=== PATIENT | female | born 1990 | race Caucasian/White ===

== ENCOUNTER 2020-08-13 07:20 | Inpatient (IN) | payer OTHER ==
[2020-08-13] VITALS (22 sets, daily range): BP systolic 90–127; BP diastolic 54–83
[~2020-08-13] VITALS: Ht 175.3 cm; Wt 96.7 kg
[2020-08-13] MEDS ORDERED: BENA25CA4 PO (07:34)
[2020-08-13] MEDS ORDERED: PRENTAB9 PO (07:34)
[2020-08-13] MEDS ORDERED: UNIS25TA3 PO (07:34)
[2020-08-13] MEDS ORDERED: GNP250TA9 PO (07:34)
[2020-08-13] MEDS ORDERED: ACET-861 PO (07:34)
--- NOTE | 2020-08-13 09:15 | HPEPDOC ---
Obstetrical History & Physical General Date of Admission Aug 13, 2020 at 07:20 History of Present Illness 29yo at 39+1 by LMP c/w 6wk US presents for IOL for CHTN not on meds. Denied n/v/d, cp, sob, donahue, visual changes, abd pain, f/c, vaginal bleeding, dc, urinary sx, decreased fm, contractions, LOF. 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 Past Medical History Medical History obesity, thoracic outlet syndrome, migraines with aura, GERD, anxiety, depression, CHTN, CF carrier Surgical History: Other (LSC appendectomy, 1st rib resection) Family History Significant Family History: Other (hemachromatosis) Social History Marital Status: Family situation: Spouse/partner home * Smoker: non-smoker Alcohol: Denies Drugs: denies Imunizations Tdap status: current Influenza Status: current Allergies Coded Allergies: No Known Allergies (Unverified , 08/13/20) Medications Scheduled Doxylamine Succinate (Unisom Sleep Aid) 25 Mg Tablet, 1 TAB PO QPM Magnesium Oxide (Magnesium) 250 Mg Tablet, 1 TAB PO DAILY No.137/Iron/Folic Acd ( Vitamin Tablet) 1 Each Tablet, 1 TAB PO DAILY Scheduled PRN Acetaminophen (Acetaminophen) 500 Mg Tablet, 2 TAB PO PRN PRN for PAIN Diphenhydramine HCl (Benadryl) 25 Mg Capsule, 1 CAP PO PRN PRN for INSOMNIA Physical Examination Physical Examination GENERAL: Alert and oriented times three. BREAST: . ABDOMEN: Gravid and non-tender to touch. FETUS: Is vertex (VTX) by U/S, fetus is vertex (VTX) by Kel. HEART RATE: Regular rate and rhythm. LUNGS: Clear to auscultation (CTA). EXTREMITIES: No edema. No clonus. Deep tendon reflexes (DTRs) + . Vital Signs/I&O Vital Signs Date Time Temp Pulse Resp B/P (MAP) Pulse Ox O2 Delivery O2 Flow Rate FiO2 08/13/20 08:24 98.5 107 18 125/70 (88) Laboratory Data Urine Culture: Contaminated Pertinent Laboratoy Data HIV: Negative Hepatitis B: Negative Rapid Plasma Reagin: Nonreactive Rubella: Immune Varicella: Immune Group B Streptococcus: Negative Quad Screen Test: Negative (cfDNA) Cystic Fibrosis: Positive (carrier per patient) Glucose Tolerance Test: 147 Anatomy Ultrasound Placenta Location: Posterior Normal Anatomy: Yes Placenta Previa: No Estimated Weight (grams): 3400 Steroid Therapy Steroid Therapy: No Vaginal Examination Dilation: None Station: -3 Cervical Consistency: Medium Cervical Position: Posterior Presentation: Cephalic presentation (by exam) Assessment Heart Rate (FHR): 130 Variability: Moderate Accelerations: Positive Decelerations: None Tocometer Contractions: No Multi-drug resistant Organism: MRSA Assessment/Plan Assessment 29yo at 39+1 by LMP c/w 6wk US presents for IOL for CHTN not on meds. Normal VS. No si/sx of pre-e. CAT I tracing, reactive. Cephalic. APC 1. CHTN no meds 2. obesity, pre- BMI 30, 11# gain 3. low lying placenta, resolved 4. elecated 1h normal 3h GTT 5. CF carrier partner negative per patient 6. anxiety and depression not on meds, consult placed to 7. ERWIN at 35wk records in chart, missing some labs ordered on admit 8. due for pap Plan Admit and orient. Electrician Master and consent. Diet: clears Group B Streptococcus (GBS) [negative]. Labs and intravenous (IV) per unit protocol. Counseled on Pitocin and induction of labor (IOL). Will start on cytotec as CT/H and reassess in 4-6h or sooner if clinically indicated Anticipate [normal spontaneous delivery ()]. C-S as appropriate. Missing labs ordered on admit (G/C, T+S, HIV) along with baseline CHTNpre-e labs NEGAR WILSON DO Aug 13, 2020 09:15
[2020-08-13 09:19] LABS: ALT/SGPT 17 U/L (12-78); BILIRUBIN,TOTAL 0.4 MG/DL (0.2-1.0); CREATININE FOR GFR 0.66 MG/DL (0.55-1.30); GLOMERULAR FILTRATION RATE > 60.0 (>60); LDH LACTATE DEHYDROGENASE 128 U/L (84-246); URIC ACID 4.3 MG/DL (2.6-6.0)
[2020-08-13 09:20] LABS: HEMATOCRIT 34.4 % (36.0-47.0); HEMOGLOBIN 11.3 g/dl (12.0-15.5); MEAN CORPUSCULAR HEMOGLOBIN 27.6 pg (27.0-33.0); MEAN CORPUSCULAR HGB CONC 32.8 g/dl (32.0-36.5); MEAN CORPUSCULAR VOLUME 84.1 fl (80.0-96.0); PLATELET COUNT, AUTOMATED 259 10^3/uL (150-450); RED BLOOD COUNT 4.09 10^6/uL (4.00-5.40); WHITE BLOOD COUNT 10.3 10^3/uL (4.0-10.0)
[2020-08-13] MEDS ORDERED: miSOPROStol 25 MCG 1/4 TAB (S0191) PO ONE (09:30)
--- NOTE | 2020-08-13 14:01 | IPNPDOC ---
Obstetrical Progress Note Date of Service Aug 13, 2020 Subjective To room for 4h assessment after administration of PO cytotec 25mcg. Patient reports she is uncomfortable but not in pain. Denied VB, LOF, decreased FM. Objective Vital Signs Date Time Temp Pulse Resp B/P (MAP) Pulse Ox O2 Delivery O2 Flow Rate FiO2 08/13/20 12:33 99 18 111/83 (92) 08/13/20 08:24 98.5 Assessment Heart Rate (FHR): 130 Variability: Moderate Accelerations: Positive Decelerations: None Heart Rate Tracing: Category I Tocometer Contractions: Yes Frequency: irregular Sterile Vaginal Examination Dilation: 1cm Station: -3 Cervical Consistency: Medium Cervical Position: Posterior Postion/Presentation: Cephalic presentation (by exam) Assessment and Plan Status: Reassuring Group B Streptococcus: Negative Anticipate: Vaginal Delivery Additional Comments SVE 1/T/H, DLFB placed. Patient with more pain requesting medication will order IV pain medication. CAT I tracing reactive. Will continue to monitor and reassess in 4-6h or sooner if clinically indicated. NEGAR WILSON DO Aug 13, 2020 14:01
[2020-08-13] MEDS ORDERED: MORPHINE 2 MG/ML 1ML VIAL (J2270) IV PRN (14:15)
[2020-08-13 15:09] LABS: CHLAMYDIA DNA AMPLIFICATION NEGATIVE (NEGATIVE); GC DNA AMPLIFICATION NEGATIVE (NEGATIVE)
[2020-08-13] MEDS ORDERED: BUTORPHANOL 2 MG/ML INJ (J0595) IV ONE ×2 (16:00→22:00)
[2020-08-13] MEDS ORDERED: PROMETHAZINE INJ 25 MG/ML VIAL (J2550) IV ONE ×2 (16:00→22:00)
--- NOTE | 2020-08-13 16:54 | IPNPDOC ---
Obstetrical Progress Note Date of Service Aug 13, 2020 Subjective Strip note: 120bpm, +accels, -decels, mod carmelita, cont 09/21. DLFB firmly in place per RN. Morphine not effective for pain, stadadol and phenergan ordered. VS normal. Objective Vital Signs Date Time Temp Pulse Resp B/P (MAP) Pulse Ox O2 Delivery O2 Flow Rate FiO2 08/13/20 16:00 20 08/13/20 12:33 99 111/83 (92) 08/13/20 08:24 98.5 NEGAR WILSON DO Aug 13, 2020 16:54
--- NOTE | 2020-08-13 22:11 | IPNPDOC ---
Obstetrical Progress Note Date of Service Aug 13, 2020 Subjective To room for routine assessment. Patient reports continued discomfort and is due for a redose of stadol/phenergan at this time, she does not yet desire an epidural. She is going to eat a meal. Objective Vital Signs Date Time Temp Pulse Resp B/P (MAP) Pulse Ox O2 Delivery O2 Flow Rate FiO2 08/13/20 20:42 139 18 104/73 (83) 08/13/20 19:32 Room Air 08/13/20 19:03 97.8 Assessment Heart Rate (FHR): 130 Variability: Moderate Accelerations: Positive Decelerations: None Heart Rate Tracing: Category I Tocometer Contractions: Yes Frequency: regular Assessment and Plan Status: Reassuring Group B Streptococcus: Negative Anticipate: Vaginal Delivery Additional Comments CAT I tracing, reactive. Patient is going to eat a meal then will start pitocin. DLFB remains in place per RN check. VS have been normal with exception of most recent HR which is tachycardic but suspect erroneous as patient has no symptoms and it was a single reading, will continue to closely monitor. Will reassess in 4-6h or sooner if clinically indicated. NEGAR WILSON DO Aug 13, 2020 22:11
[2020-08-13] MEDS: LR 1,000 ML IV SCH ×2 (22:51→23:25)
[2020-08-13] MEDS ORDERED: FENTANYL 2MCG/ML ROPIVACAINE 0.2% IN 0.9% NACL 100ML IVBAG As Ordered ONE (23:59)
[2020-08-14] VITALS (56 sets, daily range): BP systolic 80–148; BP diastolic 48–90
[2020-08-14] MEDS ORDERED: EPIDURAL/PCA KEYS XX PRN (00:45)
[2020-08-14] MEDS ORDERED: REFRIGERATOR IV KEYS XX PRN (00:45)
[2020-08-14] MEDS ORDERED: ONDANSETRON 4MG/2ML VIAL IV PRN (00:45)
[2020-08-14] MEDS ORDERED: diphenhydrAMINE 50MG/ML VIAL (J1200) IV PRN (00:45)
[2020-08-14] MEDS ORDERED: EPIDURAL COMMENT XX SCH (00:45)
[2020-08-14] MEDS ORDERED: ePHEDrine SULFATE 25 MG/5 ML(5MG/ML) SYRINGE IV PRN (00:45)
[2020-08-14] MEDS ORDERED: NALOXONE INJ 0.4MG/1ML VIAL (J2310 PER 1MG) IV PRN (00:45)
[2020-08-14] MEDS ORDERED: LACTATED RINGER'S 1000 ML IV PRN (00:45)
[2020-08-14] MEDS: LR 1,000 ML IV SCH (00:51)
[2020-08-14] MEDS: FENTANYL/ROPIVACAINE/NACL BAG 100 ML EPIDURAL SCH ×3 (00:58→14:27)
[2020-08-14] MEDS ORDERED: OXYTOCIN DRIP 30 UNITS in IV 1 EA IV SCH ×2 (01:30→18:30)
--- NOTE | 2020-08-14 01:46 | IPNPDOC ---
Obstetrical Progress Note Date of Service Aug 14, 2020 Subjective Strip note: CAT I reactive. Per RN DLFB out. SVE 5/50/-2 with possible SROM at 0100 (althramya RN reports DLFB was leaking fluid). Patient now with epidural. VS normalized, limited tachycardia resolved after epidural. Will reassess in 4- 6h or sooner if clinically indicated. Objective Vital Signs Date Time Temp Pulse Resp B/P (MAP) Pulse Ox O2 Delivery O2 Flow Rate FiO2 08/14/20 01:21 98 18 109/62 (78) 08/14/20 00:26 97.8 08/13/20 19:32 Room Air Assessment Heart Rate (FHR): 130 Variability: Moderate Accelerations: Positive Decelerations: None Heart Rate Tracing: Category I Tocometer Contractions: Yes Frequency: regular Assessment and Plan Status: Reassuring Group B Streptococcus: Negative Anticipate: Vaginal Delivery NEGAR WILSON DO Aug 14, 2020 01:46
--- NOTE | 2020-08-14 07:22 | IPNPDOC ---
Obstetrical Progress Note Date of Service Aug 14, 2020 Subjective To room for routine assessment. Patient is comfortable and has no complaints. Objective Vital Signs Date Time Temp Pulse Resp B/P (MAP) Pulse Ox O2 Delivery O2 Flow Rate FiO2 08/14/20 06:37 112 16 103/61 (75) 08/14/20 00:26 97.8 08/13/20 19:32 Room Air Assessment Heart Rate (FHR): 130 Variability: Moderate Accelerations: Positive Decelerations: None Heart Rate Tracing: Category I Tocometer Contractions: Yes Frequency: regular Sterile Vaginal Examination Dilation: 5 cm Effacement (%): 60% Station: -2 Cervical Consistency: Soft Cervical Position: Middle Postion/Presentation: Cephalic presentation (by exam) Assessment and Plan Status: Reassuring Group B Streptococcus: Negative Anticipate: Vaginal Delivery Additional Comments To room for routine assessment. CAT I tracing, reactive, normal VS. SVE 5/60/-2 which is unchanged from prior exam. AROMed slight blood tinge. Will continue to monitor and reassess in 4-6h or sooner if clinically indicated. NEGAR WILSON DO Aug 14, 2020 07:22
--- NOTE | 2020-08-14 10:53 | IPNPDOC ---
Obstetrical Progress Note Date of Service Aug 14, 2020 Subjective To room for routine assessment. Patient reports some increased pressure otherwise no complaints. Objective Vital Signs Date Time Temp Pulse Resp B/P (MAP) Pulse Ox O2 Delivery O2 Flow Rate FiO2 08/14/20 09:38 104 18 120/75 (90) 08/14/20 09:08 98.3 08/13/20 19:32 Room Air Assessment Heart Rate (FHR): 130 Variability: Moderate Accelerations: Positive Decelerations: None Heart Rate Tracing: Category I Tocometer Contractions: Yes Frequency: regular Sterile Vaginal Examination Dilation: 6 cm Effacement (%): 70% Station: -2 Cervical Consistency: Soft Cervical Position: Anterior Postion/Presentation: Cephalic presentation (by exam) Assessment and Plan Status: Reassuring Group B Streptococcus: Negative Anticipate: Vaginal Delivery Additional Comments To room for routine assessment. CAT I tracing, reactive. SVE 6/75/-2. VS normal. Will reassess in 1-2h or sooner if clinically indicated. NEGAR WILSON DO Aug 14, 2020 10:53
--- NOTE | 2020-08-14 14:14 | IPNPDOC ---
Obstetrical Progress Note Date of Service Aug 14, 2020 Subjective To room for report of increased pain and pressure. Patient is tearful. No other complaints. Objective Vital Signs Date Time Temp Pulse Resp B/P (MAP) Pulse Ox O2 Delivery O2 Flow Rate FiO2 08/14/20 09:38 104 18 120/75 (90) 08/14/20 09:08 98.3 08/13/20 19:32 Room Air Assessment Heart Rate (FHR): 130 Variability: Moderate Accelerations: Positive Decelerations: None Heart Rate Tracing: Category I Tocometer Contractions: Yes Frequency: regular Sterile Vaginal Examination Dilation: 7 cm Effacement (%): 90% Station: -1 Cervical Consistency: Soft Cervical Position: Anterior Postion/Presentation: Cephalic presentation (by exam) Assessment and Plan Status: Reassuring Group B Streptococcus: Negative Anticipate: Vaginal Delivery Additional Comments SVE is 7/90/-1 which is the same at RN exam at 1200 today. Some caput. CAT I tracing, reactive. She is 2h unchanged at this time. Will continue to closely monitor. Discussed normal labor curve to be 4h unchanged with adequate and 6h with inadequate contractions. Discussed monitoring for contraction strength, but already had to decrease pit due to tachysystole so currently still at 20U. At this point will focus on optimizing pain control, anesthesia was called to assess epidural. Will reassess in 2h and consider IUPC at next check for pit titration / MVUs. NEGAR WILSON DO Aug 14, 2020 14:14
--- NOTE | 2020-08-14 16:32 | IPNPDOC ---
Obstetrical Progress Note Date of Service Aug 14, 2020 Subjective To room for assessment of change in and maternal heart rate. Objective Vital Signs Date Time Temp Pulse Resp B/P (MAP) Pulse Ox O2 Delivery O2 Flow Rate FiO2 08/14/20 15:00 116 18 127/80 (96) 08/14/20 14:07 99.0 08/13/20 19:32 Room Air Assessment Heart Rate (FHR): 160 Variability: Moderate Accelerations: Positive Decelerations: Late, Variable Heart Rate Tracing: Category II Tocometer Contractions: Yes Frequency: regular Sterile Vaginal Examination Dilation: 7 cm Effacement (%): 90% Station: -2 Cervical Consistency: Medium Cervical Position: Anterior Postion/Presentation: Cephalic presentation (by exam) Assessment and Plan Status: Reassuring Group B Streptococcus: Negative Additional Comments heart rate has elevated from 130s to 160s and maternal heart rate to 120s. There has not yet been a maternal fever but I am concerned about potential development of amniotic infection. There is no fundal tenderness or vaginal discharge. She has also been unchanged for 4 hours in active labor. I again explained the labor curve and that how at 6h unchanged proceeding with induction then has higher risks than proceeding with . IUPC was placed for further pitocin titration and FSE was placed. Patient would like to proceed with 2h hours of induction and if unchanged proceed with . NEGAR WILSON DO Aug 14, 2020 16:32
[2020-08-14 18:26] LABS: CORD GAS ABE A -5.1; CORD GAS ABE V -5.4; CORD GAS HCO3 A 18.9 MEQ/L; CORD GAS HCO3 V 18.8 MEQ/L; CORD GAS O2 SAT A 87.1 %; CORD GAS O2 SAT V 96.7 %; CORD GAS PCO2 A 32.8 mmHg; CORD GAS PH A 7.379 UNITS; CORD GAS PH V 7.374 UNITS; CORD GAS PO2 A 38.4 mmHg; CORD GAS PO2 V 75.2 mmHg; CORD GAS SBC A 20.1 MEQ/L; CORD GAS SBC V 20.1 MEQ/L; CORD GAS TCO2 A 19.9 MEQ/L; CORD GAS TCO2 V 19.8 MEQ/L
[2020-08-14] MEDS ORDERED: miSOPROStol 200 MCG TAB (S0191) PR ONE (18:45)
[2020-08-14] MEDS ORDERED: CARBOPROST TROMETHAMINE 250 MCG/ML AMP IM ONE (18:45)
[2020-08-14] MEDS ORDERED: IBUPROFEN 600MG TAB PO PRN (19:00)
[2020-08-14] MEDS ORDERED: DOCUSATE SODIUM 100MG CAPSULE PO PRN (19:00)
[2020-08-14] MEDS ORDERED: ACETAMINOPHEN TAB 650MG DOSE (2X325MG) PO PRN (19:00)
--- NOTE | 2020-08-14 19:18 | DNPDOC ---
[facility] Delivery Note Delivery Note DATE OF DELIVERY: 08/14/20 PREDELIVERY DIAGNOSIS: 39+2/7 weeks' gestation and labor. Chronic hypertension. POST DELIVERY DIAGNOSIS: Delivered. PROCEDURE: Spontaneous vaginal delivery CERTIFIED PERSONAL TRAINER: Jovani Peacock ANESTHESIA: epidural ESTIMATED BLOOD LOSS: 500 mL. FINDINGS: 3470g infant, Score 7/9, nuchal cord times 1 tight. DELIVERY SUMMARY: 29yo at 39+2 by LMP c/w 6wk US presented for IOL for CHTN not on meds. After induction with cytotec, murry balloon, and pitocin she progressed to C/C/+3. The heart rate began to loose variability and the patient was having persistant variable decelerations. With good maternal effort and the assistance of ritdgans maneuver the patient delivered the head in a LAUREEN position. With prosper downward traction and good maternal effort the left anterior shoulder delivered without difficulty followed by the corpus. Given the CAT II heart rate near delivery cord clamping was not delayed and the cord was clamped and cut by the father of the baby. The baby was handed to the pediatrics team. The placenta was then delivered with prosper downward traction and was visualized to be in-tact, pitocin was bolused at delivery of the placenta. Follo wing delivery of the placenta brisk bleeding and uterine atony was noted. Bimanual uterine massage was performed and hemabate IM and cytotec PV administered. The uterus firmed and bleeding reduced, a transabdominal ultrasound revealed a thin endometrial stripe without color flow. The vagina and perineum were inspected and a second degree laceration was noted which was repaired with 2-0 vicryl in the usual fashion. A left labial laceration was repaired with 3-0 vicryl in the usual fashion. A small right labial and periurethral abrasion were hemostatic with some pressure. Despite reinforcing stitches with 3-0 vicryl the second decree laceration persisted to have a slow ooze. The tissue was edematous and easily tore. As a precaution an iodine soaked lap was rolled and placed in the introitus to apply continuos pressure, will reassess in 1-2h. The uterus remained firm and bleeding was assessed to be scant. The patient tolerated the procedure well. There were no complications. The sponge, lap, and needle counts were correct. JOVANI WILSON DO Aug 14, 2020 19:18
[2020-08-14] MEDS ORDERED: LOMOTIL 2.5MG/0.025MG TABLET PO PRN (19:30)
[2020-08-15] MEDS: IBUPROFEN 800 MG TAB PO PRN ×3 (00:36→17:16)
[2020-08-15 06:00] VITALS: BP 111/61
[2020-08-15] MEDS ORDERED: medroxyPROGESTERone ACET IM SUSP 150 MG/ML VIAL (J1050) IM SCH (06:15)
--- NOTE | 2020-08-15 06:21 | IPNPDOC ---
Progress Note Date of Service: Aug 15, 2020 Day#: 1 Progress Note SUBJECT: Ms. Jain is a 29yo s/p after IOL for CHTN no meds c/b 2MLL and uterine atony requiring hemabate, pitocin, and cytotec EBL 500cc. She has been ambulating, voiding spontaneously without issue and tolerating regular diet. Breast feeding without issue. Reports lochia is [like a normal period]. Patient is ambulating well. Denies any pain. Voiding and passing flatus without difficulty]. 29yo at 39+1 by LMP c/w 6wk US presents for IOL for CHTN not on meds. Normal VS. No si/sx of pre-e. CAT I tracing, reactive. Cephalic. APC 1. CHTN no meds 2. obesity, pre- BMI 30, 11# gain 3. low lying placenta, resolved 4. elevated 1h normal 3h GTT 5. CF carrier partner negative per patient 6. anxiety and depression not on meds, consult placed to 7. ERWIN at 35wk records in chart, missing some labs ordered on admit 8. due for pap OBJECTIVE: VITAL SIGNS: Within normal limits, afebrile. Alert and oriented times three. No increased WOB Heart rate: non-tachycardic Abdomen: Fundus firm at U-1. Soft, NTTP. [Minimal] lochia. ASSESSMENT: Ms. Jain is a 29yo s/p after IOL for CHTN no meds c/b 2MLL and uterine atony requiring hemabate, pitocin, and cytotec EBL 500cc. Just prior to delivery she was tachycardic (as was baby) and there was initial concern for potential IAI development but her HR has normalized and she remains afebrile without uterine tenderness or vaginal discharge. She has been mostly normotensive with rare mild range BPs and no si/sx of pre-eclampsia. She initially had some precautionary packing placed at the introitus for continued slow oozing from her repair site, this was removed approx 1.5h after delivery and the site was hemostatic. She reports her bleeding is like a normal period. PLAN: 1. Discharge to home likely tomorrow 2. Tylenol and Motrin for pain. 3. Encourage breast feeding and ambulation. 4. Desires depo-provera for contraception, ordered first dose to be given before discharge 5. Routine PP visit in 6 weeks in clinic. 6. Discussed return precautions at length. VS, I&O, 24H, Fishbone Vital Signs/I&O Vital Signs Date Time Temp Pulse Resp B/P (MAP) Pulse Ox O2 Delivery O2 Flow Rate FiO2 08/15/20 06:00 98.1 99 18 111/61 (78) 08/14/20 21:30 100 Room Air I&O- Last 24 Hours up to 6 AM 08/15/20 06:00 Intake Total 720 ml Output Total 1700 ml Balance -980 ml Laboratory Data 24H LABS Laboratory Tests 2 08/14/20 18:18: Cord Arterial Blood pH 7.379, Cord Arterial Blood PCO2 32.8, Cord Arterial Blood PO2 38.4, Cord Arterial Blood HCO3 18.9, Cord Arterial Blood Total CO2 19.9, Cord Arterial Blood Base Excess -5.1, Cord Arterial Base Excess (Standard 20.1, Cord Arterial Bld Oxygen Saturation 87.1, Cord Venous Blood pH 7.374, Cord Venous Blood PCO2 33.0, Cord Venous Blood PO2 75.2, Cord Venous Blood HCO3 18.8, Cord Venous Blood Total CO2 19.8, Cord Venous Base Excess (Actual) -5.4, Cord Venous Base Excess (Standard) 20.1, Cord Venous Blood Oxygen Saturation 96.7 NEGAR WILSON DO Aug 15, 2020 06:21
[2020-08-15] MEDS: PRENATAL VITAMINS CHEWABLE TABLET PO SCH (07:55)
[2020-08-15] MEDS: LR 1,000 ML IV SCH (10:44)
[2020-08-15] MEDS: ACETAMINOPHEN 500 MG TAB PO PRN ×2 (14:16→22:51)
[2020-08-15 17:57] VITALS: BP 100/57
[2020-08-16 06:00] VITALS: BP 115/75
--- NOTE | 2020-08-16 06:47 | IPNPDOC ---
Progress Note Date of Service: Aug 16, 2020 Day#: 2 Progress Note SUBJECT: Madeline is a 29yo PPD#2 s/p after IOL for CHTN at 39wks over 2MLL c/b uterine atony. She reports feeling well. Ambulating without difficulty, tolerating regular diet, voiding spontaneously, and bonding well with , and pain controlled. Reports lochia is decreasing. OBJECTIVE: VITAL SIGNS: Within normal limits, afebrile. Alert and oriented times three. Resp: no exaggerated resp effort noted Cards: well-perfused Abdomen: Fundus firm at U-2. Soft, NTTP. Small lochia ASSESSMENT: Madeline is a 29yo PPD#2 s/p after IOL for CHTN at 39wks over 2MLL c/b uterine atony. Vitals within normal limits, afebrile, hemodynamically stable with no evidence of infection. PLAN: 1. Discharge to home today. 2. Tylenol and Motrin for pain. 3. Encourage breast feeding and ambulation. 4. Encourage regular diet and PO hydration as tolerated 5. Routine PP visit in 6 weeks in clinic. 6. Discussed return precautions at length. VS, I&O, 24H, Fishbone Vital Signs/I&O Vital Signs Date Time Temp Pulse Resp B/P (MAP) Pulse Ox O2 Delivery O2 Flow Rate FiO2 08/16/20 06:00 98.0 93 18 115/75 (88) 08/15/20 17:57 97 Room Air I&O- Last 24 Hours up to 6 AM 08/16/20 06:00 Intake Total 1080 ml Balance 1080 ml KIKI GPUTA DO Aug 16, 2020 06:47
[2020-08-16] MEDS: PRENATAL VITAMINS CHEWABLE TABLET PO SCH (07:34)
[2020-08-16] MEDS: IBUPROFEN 800 MG TAB PO PRN (07:37)
[2020-08-16] MEDS: LR 1,000 ML IV SCH ×2 (08:27→10:44)
== END 2020-08-16 13:00 | disposition home or self-care (01) | DRG 807 ==
LOC: M LDI 07:20 → M OBS 08-14 21:03
PROVIDERS: ADMIT Obstetrics & Gynecology; ATTEND Obstetrics & Gynecology
PROC: 3E033VJ Introduction of Other Hormone into Peripheral Vein, Percutaneous Approach (ICD-10-PCS; 2020-08-13)
PROC: 3E0DXGC Introduction of Other Therapeutic Substance into Mouth and Pharynx, External Approach (ICD-10-PCS; 2020-08-13)
PROC: 10E0XZZ Delivery of Products of Conception, External Approach (ICD-10-PCS; principal; 2020-08-14)
PROC: 0KQM0ZZ Repair Perineum Muscle, Open Approach (ICD-10-PCS; 2020-08-14)
DX: O10.92 Unspecified pre-existing hypertension complicating childbirth (principal); Z37.0 Single live birth; Z3A.39 39 weeks gestation of pregnancy; Z14.1 Cystic fibrosis carrier; E66.9 Obesity, unspecified; Z68.30 Body mass index [BMI] 30.0-30.9, adult; O99.214 Obesity complicating childbirth; O76 Abnormality in fetal heart rate and rhythm complicating labor and delivery; O70.1 Second degree perineal laceration during delivery

== ENCOUNTER 2020-08-26 22:56 | Emergency (ER) | payer OTHER ==
[~2020-08-26] VITALS: Ht 175.3 cm; Wt 84.1 kg
[~2020-08-26 22:56] MED LIST: ACET-861 PO; BENA25CA4 PO; GNP250TA9 PO; PRENTAB9 PO; UNIS25TA3 PO
[2020-08-26] MEDS ORDERED: OMEP-218 (23:05)
[2020-08-26] MEDS ORDERED: IBUP-1022 (23:05)
[2020-08-26] MEDS ORDERED: SERT25TA21 (23:05)
[2020-08-26 23:46] LABS: BASO % 0.4 % (0.0-1.0); EOS # 0.2 10^3/uL (0.0-0.5); HEMATOCRIT 29.6 % (36.0-47.0); HEMOGLOBIN 9.1 g/dl (12.0-15.5); LYMPH # 2.9 10^3/uL (1.5-5.0); LYMPH % 28.8 % (24.0-44.0); MEAN CORPUSCULAR HEMOGLOBIN 26.1 pg (27.0-33.0); MEAN CORPUSCULAR HGB CONC 30.7 g/dl (32.0-36.5); MEAN CORPUSCULAR VOLUME 85.1 fl (80.0-96.0); MONO # 0.4 10^3/uL (0.0-0.8); MONO % 4.4 % (0.0-5.0); NEUTROPHILS # 6.4 10^3/uL (1.5-8.5); NEUTROPHILS % 63.5 % (36.0-66.0); PLATELET COUNT, AUTOMATED 416 10^3/uL (150-450); RED BLOOD COUNT 3.48 10^6/uL (4.00-5.40); WHITE BLOOD COUNT 10.1 10^3/uL (4.0-10.0)
--- OUTSIDE RECORDS SUMMARY | 2020-08-26 23:59 | CCD ---
Author Author [facility] Address Unknown Phone Unavailable Support Name Relationship Address Phone UE Next Of Kin Unknown Unavailable HILARY TATE Next Of Kin [id number] [place], [place] [address] Re-disclosure Warning The records that you are about to access may contain information from federally-assisted alcohol or drug abuse programs. If such information is present, then the following federally mandated warning applies: This information has been disclosed to you from records protected by federal confidentiality rules (42 CFR part 2). The federal rules prohibit you from making any further disclosure of this information unless further disclosure is expressly permitted by the written consent of the person to whom it pertains or as otherwise permitted by 42 CFR part 2. A general authorization for the release of medical or other information is NOT sufficient for this purpose. The Federal rules restrict any use of the information to criminally investigate or prosecute any alcohol or drug abuse patient.The records that you are about to access may contain highly sensitive health information, the redisclosure of which is protected by Article 27-F of the [facility] Public Health law. If you continue you may have access to information: Regarding HIV / AIDS; Provided by facilities licensed or operated by the [facility] Office of Mental Health; or Provided by the [facility] Office for People With Developmental Disabilities. If such information is present, then the following [facility] mandated warning applies: This information has been disclosed to you from confidential records which are protected by state law. State law prohibits you from making any further disclosure of this information without the specific written consent of the person to whom it pertains, or as otherwise permitted by law. Any unauthorized further disclosure in violation of state law may result in a fine or group home sentence or both. A general authorization for the release of medical or other information is NOT sufficient authorization for further disc losure. Insurance Providers Payer name Policy type / Coverage type Policy ID Covered green party ID Covered green party's relationship to rendon Policy Rendon Plan Information [facility] [id number] [facility] [id number]
--- NOTE | 2020-08-27 00:17 | REPVR ---
PROCEDURE INFORMATION: Exam: US Nonobstetric Pelvis; Complete Exam date and time: 08/26/2020 11:51 PM Age: 29 years old Clinical indication: Vaginal bleeding 12 days post . TECHNIQUE: Imaging protocol: Transabdominal pelvic nonobstetric ultrasound. Complete exam. Real time ultrasound with image documentation. COMPARISON: No relevant prior studies available. FINDINGS: Uterus/cervix: The anteverted uterus is normal in appearance. No myometrial mass is noted. There is a trace amount of fluid in the endometrial canal. No increased color Doppler blood flow is noted in the endometrium. The cervix is unremarkable. Endometrial stripe thickness: 18 mm Right adnexa: The right ovary is normal in appearance. No right ovarian cyst or right adnexal mass is noted. The color Doppler flow and spectral waveforms within the right ovary are within normal limits, without evidence for right ovarian torsion. Left adnexa: The left ovary is normal in appearance. No left ovarian cyst or left adnexal mass is noted. The color Doppler flow and spectral waveforms within the left ovary are within normal limits, without evidence for left ovarian torsion. Intraperitoneal space: No free fluid is seen in the pelvis from the images obtained. Urinary bladder: Unremarkable. Uterus size: 13.6 cm x 6.4 cm x 10.8 cm Right ovary size: 2.8 cm x 1.5 cm x 1.9 cm Left ovary size: 2.3 cm x 1.5 cm x 1.8 cm IMPRESSION: 1. Trace amount of hemorrhage in the endometrial canal. 2. No sonographic findings to suggest retained products of conception. Electronically signed by: Wong Maxwell On 08/27/2020 00:16:48 AM
[2020-08-27 00:22] LABS: BLOOD UREA NITROGEN 19 MG/DL (7-18); CALCIUM LEVEL 9.1 MG/DL (8.5-10.1); CARBON DIOXIDE LEVEL 26 MEQ/L (21-32); CHLORIDE LEVEL 108 MEQ/L (98-107); CREATININE FOR GFR 0.74 MG/DL (0.55-1.30); GLOMERULAR FILTRATION RATE > 60.0 (>60); GLUCOSE, FASTING 93 MG/DL (70-100); POTASSIUM SERUM 4.2 MEQ/L (3.5-5.1); SODIUM LEVEL 141 MEQ/L (136-145)
[2020-08-27] MEDS ORDERED: METHYLERGONOVINE MALEATE 0.2 MG/ML VIAL (J2210) IV STA (00:36)
[2020-08-27] MEDS ORDERED: METHYLERGONOVINE MALEATE 0.2 MG/ML VIAL (J2210) IV ONE ×2 (03:30)
[2020-08-27] MEDS ORDERED: METH0.2T53 PO (04:39)
[2020-08-27 04:55] VITALS: BP 126/59
== END 2020-08-27 05:04 | disposition home or self-care (01) ==
LOC: M ED 22:56
DX: N93.8 Other specified abnormal uterine and vaginal bleeding (principal); I10 Essential (primary) hypertension; F33.9 Major depressive disorder, recurrent, unspecified; F41.9 Anxiety disorder, unspecified; K21.9 Gastro-esophageal reflux disease without esophagitis; Z79.899 Other long term (current) drug therapy
CPT/HCPCS: 76856; 80048; 85025; 86850; 86900; 86901; 96374; 96376; 99284; J2210